=== PATIENT | female | born 1980 ===

== ENCOUNTER 2024-09-22 14:17 | Emergency (ER) | payer SELFPAY ==
[~2024-09-22] VITALS: Ht 165.1 cm; Wt 73.7 kg
[2024-09-22 14:19] VITALS: BP 112/69; TEMP 97.1; O2SAT 98
== END 2024-09-22 14:54 | disposition left against medical advice (07) ==
LOC: M ED 14:17
DX: Z53.21 Procedure and treatment not carried out due to patient leaving prior to being seen by health care provider (principal)